=== PATIENT | male | born 2000 | race Two or more races ===

== ENCOUNTER 2021-03-24 11:46 | Emergency (ER) | payer OTHER ==
[2021-03-24] MEDS ORDERED: CEPHALEXIN500 MG PO (15:19)
== END 2021-03-24 15:32 | disposition home or self-care (01) ==
LOC: FER 11:46
DX: S81.041A Puncture wound with foreign body, right knee, initial encounter (principal); Z23 Encounter for immunization; W29.4XXA Contact with nail gun, initial encounter; Y92.69 Other specified industrial and construction area as the place of occurrence of the external cause; Y99.0 Civilian activity done for income or pay
CPT/HCPCS: 73560; 90471; 90715; J0690; J1170